=== PATIENT | male | born 1995 | race Caucasian/White ===

== ENCOUNTER 2017-02-01 16:47 | Emergency (ER) | payer MEDICAID ==
[~2017-02-01] VITALS: Ht 175.2 cm; Wt 95.3 kg
[~2017-02-01 16:47] MED LIST: CYCLOBENZAPRINE10 MG PO; HYDROCODONE BIT1 T11 PO; NAPROSYN500 MG PO; ZITHROMAX Z PA250 MG PO
== END 2017-02-01 18:32 | disposition home or self-care (01) ==
LOC: ED 16:47
DX: S93.401A Sprain of unspecified ligament of right ankle, initial encounter (principal); F17.200 Nicotine dependence, unspecified, uncomplicated; Z91.030 Bee allergy status; X50.9XXA Other and unspecified overexertion or strenuous movements or postures, initial encounter; Y93.89 Activity, other specified; Y92.9 Unspecified place or not applicable; Y99.9 Unspecified external cause status

== ENCOUNTER 2017-02-23 16:23 | Emergency (ER) | payer MEDICAID ==
[~2017-02-23] VITALS: Ht 175.2 cm; Wt 95.3 kg
== END 2017-02-23 21:25 | disposition home or self-care (01) ==
LOC: ED 16:23
DX: S82.401A Unspecified fracture of shaft of right fibula, initial encounter for closed fracture (principal); F17.200 Nicotine dependence, unspecified, uncomplicated; Z91.030 Bee allergy status; X58.XXXA Exposure to other specified factors, initial encounter; Y93.9 Activity, unspecified; Y92.9 Unspecified place or not applicable; Y99.9 Unspecified external cause status

== ENCOUNTER 2017-03-06 20:28 | Emergency (ER) | payer MEDICAID ==
[~2017-03-06] VITALS: Ht 175.2 cm; Wt 95.3 kg
== END 2017-03-06 20:50 | disposition left against medical advice (07) ==
LOC: ED 20:28
DX: T40.601A Poisoning by unspecified narcotics, accidental (unintentional), initial encounter (principal); F17.200 Nicotine dependence, unspecified, uncomplicated; Z91.030 Bee allergy status; Y92.9 Unspecified place or not applicable

== ENCOUNTER 2017-04-23 04:26 | Emergency (ER) | payer MEDICAID | END 2017-04-23 04:31 | disposition left against medical advice (07) | LOC: ED 04:26 | DX: T40.1X1A Poisoning by heroin, accidental (unintentional), initial encounter (principal); Z91.030 Bee allergy status; Y92.89 Other specified places as the place of occurrence of the external cause ==

== ENCOUNTER 2017-05-14 20:30 | Emergency (ER) | payer MEDICAID ==
[~2017-05-14] VITALS: Ht 175.2 cm; Wt 86.2 kg
== END 2017-05-14 21:53 | disposition left against medical advice (07) ==
LOC: ED 20:30
DX: T40.1X1A Poisoning by heroin, accidental (unintentional), initial encounter (principal); R11.2 Nausea with vomiting, unspecified; R40.20 Unspecified coma; F17.200 Nicotine dependence, unspecified, uncomplicated; Z91.030 Bee allergy status; Y92.9 Unspecified place or not applicable